=== PATIENT | male | born 1950 | race Caucasian/White ===

== ENCOUNTER → 2017-11-29 | Outpatient (CLI) | payer OTHER ==
--- NOTE | 2017-11-29 13:30 | NM ---
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 Personal history of hyperlipidemia and coronary artery disease. TECHNIQUE: After the intravenous administration of 10.62 mCi Tc 99m Sestamibi - Rest images obtained 45 minutes post injection. The patient exercised using a WARREN protocol and 1 minute prior to peak exercise was injected with 24.1 mCi Tc 99m Sestamibi - Stress images obtained 47 minutes post inject ion. FINDINGS: Targeted heart rate was achieved during performance of the study. Review of stress and rest SPECT heather ges demonstrates no reversible perfusion abnormality. Large 7-8 cardiac segment defect is seen in the anteroseptal wall in the distribution of the left anterior descending coronary artery from prior inf arct. Gated analysis shows abnormal wall motion with dyskinesis of the interseptal wall and an estima oswaldo left ventricular ejection fraction of 53 %. TID calculated within normal limits at 0.89. IMPRESSION: 1. No scintigraphic evidence for reversible ischemia. 2. Large fixed defect in the distribution of the left anterior descending coronary artery from prior infarct. 3. Estimated left ventricular ejection fraction of 53%.
--- NOTE | 2017-11-29 22:55 | EST ---
EXERCISE STRESS AGE: 67 SEX: Male HT: 6'1" WT: 195 lbs PROTOCOL: Cardiolite treadmill STAGE: I DURATION OF EXERCISE: 4:30 HEART RATE REST: 69 BLOOD PRESSURE REST: 154/95 MAXIMUM HEART RATE ACHIEVED: 147 MAXIMUM BLOOD PRESSURE: 193/82 85% MPHR: 128 100% MPHR: 149 METS: 6.4 INDICATIONS: IA, ST elevation. CLINICAL INFORMATION: Baseline EKG revealed a normal sinus rhythm without significant ST-T changes. Patient walked on a standard Perry protocol for 4-1/2 minutes, achieved a maximal heart rate of 147 beats per minute, which is more than 85% of predicted maximal. He developed fatigue and shortness of breath but did not have any angina or arrhythmia. EKG did not reveal any ST-segment changes to indicate ischemia. Exercise capacity was, however, limited. By EKG criteria, this is a negative stress test with limited exercise capacity. The nuclear scan results, which are more pertinent, will be reported by the radiologist. FESTUS / MERAN: [id number] /
== END | disposition home or self-care (01) ==
LOC: RADNMMAIN 07:58
DX: I77.89 Other specified disorders of arteries and arterioles (principal)
CPT/HCPCS: 93017; 78452; A9500